=== PATIENT | male | born 1955 | race Asian ===

== ENCOUNTER 2018-12-21 08:02 | Emergency (ER) | payer MEDICAID ==
[~2018-12-21] VITALS: Ht 160 cm; Wt 52.2 kg
[2018-12-21 08:15] VITALS: Ht 160 cm; Wt 52.2 kg
[2018-12-21 09:01] LABS: CALCIUM 8.3 mg/dL (8.5-10.1); CARBON DIOXIDE 27.9 mmol/L (21-32); CHLORIDE SERUM 104 mmol/L (98-107); GFR1 > 60 mL/min; GLUCOSE SERUM 114 mg/dL (74-106); POTASSIUM SERUM 4.4 mmol/L (3.5-5.1); SODIUM SERUM 139 mmol/L (136-145)
[2018-12-21 09:15] LABS: ALKALINE PHOSPHATASE 55 U/L (46-116); ALT/SGPT 17 U/L (16-63); AMYLASE 62 U/L (25-115); AST/SGOT 16 U/L (15-37); BILIRUBIN TOTAL 0.22 mg/dL (0.20-1.00); LIPASE 172 IU/L (73-393); MAGNESIUM 1.9 mg/dL (1.8-2.4); T4(THYROXINE) 7.6 ug/dL (4.7-13.3)
[2018-12-21 09:21] LABS: ALBUMIN 1.8 g/dL (3.4-5.0); CHOLESTEROL 286 mg/dL (<200); HDL CHOLESTEROL 61 mg/dL (40-60); TOTAL PROTEIN, SERUM 5.4 g/dL (6.4-8.2)
[2018-12-21 09:35] LABS: BASOPHIL % 0.3 % (0-2); PLATELET COUNT 232 x10^3mcL (130-400); RED CELL DISTRIBUTION WIDTH 13.3 % (11.5-14.5)
[2018-12-21 10:17] LABS: UA SPECIFIC GRAVITY >=1.030 (1.005-1.035); microscopic required? YES; urine erythrocyte TRACE (NEGATIVE)
[2018-12-21 10:57] LABS: AMPHETAMINE QUAL UR NONE DETECTED (See below)
[2018-12-21 11:42] VITALS: BP 119/74
== END 2018-12-21 11:42 | disposition home or self-care (01) ==
LOC: ED 08:02
PROVIDERS: Emergency Medicine
DX: R42 Dizziness and giddiness (principal); I10 Essential (primary) hypertension; E78.00 Pure hypercholesterolemia, unspecified; Z95.5 Presence of coronary angioplasty implant and graft
CPT/HCPCS: 36415; 82962; 83880; J8597; Q0092